=== PATIENT | male | born 1965 | race Caucasian/White ===

== ENCOUNTER 2016-04-26 16:53 | Emergency (ER) | payer OTHER ==
[~2016-04-26] VITALS: Ht 180.3 cm; Wt 90.7 kg
[~2016-04-26 16:53] MED LIST: BACTRIM DS 8001 TAB PO; KEFLEX500 MG PO; NAPROSYN500 M1 PO; POLYTRIM O200 GTT/BO OD; POLYTRIM O200 GTT/BO OP
[2016-04-26 17:06] VITALS: BP 122/72
[2016-04-26] MEDS ORDERED: CYCLOBENZAPRINE5 M2 PO (17:35)
[2016-04-26] MEDS ORDERED: NAPROSYN500 M1 PO (17:35)
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
== END 2016-04-26 17:52 ==
LOC: ERH 16:53
DX: S16.1XXA Strain of muscle, fascia and tendon at neck level, initial encounter (principal); V57.5XXA Driver of pick-up truck or van injured in collision with fixed or stationary object in traffic accident, initial encounter